=== PATIENT | female | born 1945 | race Caucasian/White ===

== ENCOUNTER → 2018-10-13 | Outpatient (CLI) | payer MEDICARE, OTHER ==
[~2018-10-13] MED LIST: ASC500 PO; ASPI81TA94 PO; BIOT5000 PO; BUPR-124 PO; CALC-1088 PO; CALC250T7 PO; CALC500T6 PO; DESV50TA9 PO; FA/M1TAB27 PO; FISH OIL1 CAP PO; GLUC-128 PO; IBU200 PO; LEV75 PO; MAGN1POW16 PO; MV-M1TAB28 PO; OMEG-11 PO; PLAN450T3 PO; UBID50TA3 PO; VIT1TABL4 PO; VITA1CAP46 PO; [UNRECOGNIZED DRUG - OTHER] PO
[2018-10-13 13:13] LABS: PLATELET COUNT, AUTOMATED 267 K/uL (150-450)
== END ==
LOC: LAB 12:17
PROVIDERS: ATTEND Surgery
DX: R19.5 Other fecal abnormalities (principal)
CPT/HCPCS: 36415; 85025

== ENCOUNTER → 2018-11-10 | Day surgery (SDC) | payer MEDICARE, OTHER ==
[~2018-11-10] VITALS: Ht 162.6 cm; Wt 50.3 kg
[~2018-11-10] MED LIST changes: +LIDOCAINE/SOD BICARB 8.4% SYR ID ONE; +NORMOSOL R SOLN(*) 1000 ML BAG 1,000 ML IV PRN; +PROPOFOL EMUL(*) 10MG/ML 20 ML 40 ML ONE
[2018-11-10 09:35] VITALS: BP 144/75
[2018-11-10 10:35] VITALS: BP 76/45
--- NOTE | 2018-11-10 10:35 | Short(Outpt) Discharge Summary ---
Discharge Summary Reason for Hosp/Final Diag: (1) Fecal occult blood test positive Hospital Course & Plan: 73 yo f with +fobt. presents for colonoscopy. she tolerated the procedure well and there were no complications. she will be discharged home when criteria met. path pending. Discharge Instructions Home Meds Reported Medications Magnesium Malate (MAGNESIUM MALATE) 1 Gm Powder, 1 CAP PO QDAY 10/18/18 Mv-Mn/Vitc/Asbna/Glu/Namita/Hc124 (AIRBORNE GUMMIES) 1 Each Tab.chew, PO TID 10/18/18 [Ovex] No Conflict Check, 358 MG PO BID 10/18/18 Biotin (Biotin) 5,000 Mcg Tab.rapdis, 5000 MCG PO QDAY 10/18/18 Vit D3/Folic Acid/B2/B6/B12 (FOLGARD TABLET) 1 Each Tablet, 1 EACH PO QDAY 10/18/18 Calcium Carbonate (CALCIUM) 500 Mg Tablet, 500 MG PO QDAY 10/18/18 Aspirin (ASPIRIN) 81 Mg Tab.chew, 81 MG PO QDAY, TAB.CHEW 10/13/18 Plant Stanol Aissatou (CHOLEST OFF) 450 Mg Tablet, 450 MG PO QDAY 10/13/18 Smyer-3 Fatty Acids/Fish Oil (FISH OIL 1,000 MG CAPSULE) 1 Each Capsule, 1 EACH PO QDAY, CAPSULE 10/13/18 Ubidecarenone (COQ10) 50 Mg Tab.chew, 200 MG PO QDAY, TAB.CHEW 10/13/18 Glucosam Hcl/Chondro Durahm A/C/Mn (GLUCOSAMINE-CHONDROITIN CAP) 1 Each Capsule, 2 CAP PO BID, CAPSULE 10/13/18 Bupropion Hcl (BUPROPION XL) 150 Mg Tab.er.24h, 150 MG PO QDAY, #10 TAB 10/13/18 Desvenlafaxine Succinate (PRISTIQ ER) 50 Mg Tab.er.24h, 50 MG PO QDAY 10/13/18 Levothyroxine Sodium (Synthroid/Levothroid) 0.075 Mg Tab, 88 MCG PO QDAY 03/20/08 Diet: Regular Activity: As Tolerated Special Instructions: we will call you in 7-10 days with biopsy results PEDRO SANCHEZ Nov 10, 2018 10:35
[2018-11-10 10:40] VITALS: BP 77/49
[2018-11-10 10:49] VITALS: BP 97/67
--- NOTE | 2018-11-10 11:00 | NUR ---
ORTHOSTATIC VITALS COMPLETE. DATA LOST. WNL AND ASYMPTOMATIC.
== END ==
LOC: OR 01:03
PROVIDERS: ATTEND Surgery
DX: D12.2 Benign neoplasm of ascending colon (principal); K57.30 Diverticulosis of large intestine without perforation or abscess without bleeding
CPT/HCPCS: 00811; 45385; 88305; J2704